=== PATIENT | male | born 1965 | race Two or more races ===

== ENCOUNTER 2023-07-31 12:52 | Emergency (ER) | payer MEDICAID ==
[~2023-07-31] VITALS: Ht 180.3 cm; Wt 87.8 kg
[2023-07-31] MEDS ORDERED: AUG875T PO (14:40)
[2023-07-31] MEDS ORDERED: IBUP-1456 PO (14:40)
[2023-07-31 14:42] VITALS: BP 131/90; PULSE 88; RESP 16; TEMP 98.8; O2SAT 96
[2023-07-31] MEDS ORDERED: IBUPROFEN 800 MG TAB PO ONE (14:45)
[2023-07-31] MEDS ORDERED: cefTRIAXone SOD 1,000 MG VL IM ONE (14:45)
== END 2023-07-31 15:06 | disposition left against medical advice (07) ==
LOC: ER 12:52
DX: S68.126A Partial traumatic metacarpophalangeal amputation of right little finger, initial encounter (principal); Z79.1 Long term (current) use of non-steroidal anti-inflammatories (NSAID); Z79.899 Other long term (current) drug therapy; W54.0XXA Bitten by dog, initial encounter; Y93.89 Activity, other specified; Y92.89 Other specified places as the place of occurrence of the external cause; Y99.8 Other external cause status
CPT/HCPCS: 73130; 96372; 99283; J0696